=== PATIENT | male | born 1985 | race African-American/Black ===

== ENCOUNTER 2018-08-24 08:29 | Emergency (ER) | payer SELFPAY ==
[~2018-08-24] VITALS: Ht 180.3 cm; Wt 97.0 kg
[2018-08-24 08:49] VITALS: BP 124/82
== END 2018-08-24 10:44 | disposition home or self-care (01) ==
LOC: ER 08:29
DX: J06.9 Acute upper respiratory infection, unspecified (principal); M79.10 Myalgia, unspecified site; F17.200 Nicotine dependence, unspecified, uncomplicated; Z98.890 Other specified postprocedural states
CPT/HCPCS: 99283

== ENCOUNTER 2021-12-09 10:03 | Emergency (ER) | payer MEDICAID ==
[~2021-12-09] VITALS: Ht 177.8 cm; Wt 77.0 kg
[2021-12-09 10:30] VITALS: BP 120/78
[2021-12-09] MEDS ORDERED: ACETAMINOPHEN 325MG TABLET PO STA (10:42)
[2021-12-09] MEDS ORDERED: SODIUM CHLORIDE 0.9% 1,000 ML IV ONE (10:45)
[2021-12-09 11:30] LABS: HEMATOCRIT. 44.6 % (42.0-52.0); HEMOGLOBIN. 14.7 g/dL (14.0-18.0); MEAN CORPUSCULAR VOLUME 97.4 fL (80.0-94.0); PLATELET 294 x1000/uL (130-400); RED BLOOD CELL COUNT 4.58 mill/uL (4.7-6.1); RED CELL DISTRIBUTION WIDTH 12.9 % (11.6-14.6)
[2021-12-09 11:33] LABS: CHLORIDE 107 mEq/L (98-107)
[2021-12-09 11:49] LABS: ETHANOL BLOOD < 10 mg/dL
[2021-12-09 13:16] LABS: PLATELET ESTIMATE NORMAL
== END 2021-12-09 20:37 | disposition left against medical advice (07) ==
LOC: ER 10:21
DX: R00.0 Tachycardia, unspecified (principal); E87.2 Acidosis; D72.829 Elevated white blood cell count, unspecified; F15.10 Other stimulant abuse, uncomplicated; Z20.822 Contact with and (suspected) exposure to COVID-19
CPT/HCPCS: 36415; 71045; 80053; 80307; 80320; 80329; 83605; 83880; 84443; 84484; 85025; 93005; 99285; J7030; G0480